=== PATIENT | male | born 1985 | race American Indian/Alaskan Native ===

== ENCOUNTER 2020-05-15 15:10 | Emergency (ER) | payer SELFPAY ==
[2020-05-15 16:10] VITALS: BP 205/148
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
--- NOTE | 2020-05-15 16:39 | XRay Report ---
LEFT SHOULDER 3 VIEWS INDICATION / CLINICAL INFORMATION: left shoulder pain COMPARISON: None available. FINDINGS: BONES and JOINT(S): No acute fracture or subluxation. No significant arthritis. SOFT TISSUES: No significant abnormality. ADDITIONAL FINDINGS: None. IMPRESSION: 1. No acute findings. Signer Name: Italo Becker MD Signed: 05/15/2020 4:34 PM Workstation Name: [id number]
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
== END 2020-05-15 17:42 | disposition home or self-care (01) ==
LOC: ED 15:10
DX: M25.512 Pain in left shoulder (principal); I10 Essential (primary) hypertension; Z79.899 Other long term (current) drug therapy; Z88.2 Allergy status to sulfonamides
CPT/HCPCS: 99283

== ENCOUNTER 2020-05-22 10:43 | Emergency (ER) | payer SELFPAY | END 2020-05-22 16:48 | disposition left against medical advice (07) | LOC: ED 10:43 | DX: M79.602 Pain in left arm (principal); Z53.21 Procedure and treatment not carried out due to patient leaving prior to being seen by health care provider ==

== ENCOUNTER 2020-07-23 11:56 | Emergency (ER) | payer BC ==
--- NOTE | 2020-07-23 14:56 | Emergency Department Report ---
Chief Complaint: Extremity Injury, Lower Stated Complaint: LT FOOT/RT TOE PAIN Time Seen by Provider: 07/23/20 14:48 - HPI History of Present Illness: Patient is a 34-year-old male presents emergency room complaints of chronic left foot pain. He states that he has a history of flatfoot and hammertoe. He states that he previously used to see a women's studies professor. He denies any fall or injury. Denies any numbness or weakness. He is ambulatory. He denies any foot swelling or redness. He has a past medical history of hypertension. Allergy to sulfa. Vitals with elevated blood pressure, otherwise stable On exam: Pes planus of the left foot, full range of motion of the left lower extremity, no edema, no erythema, no increased warmth, no skin changes, neurovascularly intact Patient is presenting for chronic foot pain He has a history of pes planus He has had no acute trauma He has no bony tenderness, full range of motion No signs of infection, gout, DVT Patient be referred to a women's studies professor Patient referred to primary care doctor Discuss strict return precautions in detail with patient Discussed with patient elevation in blood pressure, advised patient to follow-up with primary care doctor regarding blood pressure elevation, discussed low- sodium diet, discussed increasing water intake, discussed 30-60 minutes of daily exercise, advised to keep a blood pressure log and take to the primary care doctor The up-to-date medical literature does not recommend to emergently lower asymptomatic elevated blood pressure Patient is aware of his elevated blood pressure, 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 ED Disposition for MSE Clinical Impression: Left foot pain Disposition: Z-07 MED SCREENING EXAM-LEFT Is pt being admited?: No Does the pt Need Aspirin: No Condition: Stable Instructions: Foot Pain Additional Instructions: Please follow-up with a women's studies professor. Please follow-up with your primary care doctor. Return to emergency room for any new or worsening symptoms. Referrals: TYE MONDRAGON DPM [Staff Physician] - 2-3 Days CHIDI COOPER MD [Staff Physician] - 2-3 Days BILL MIRANDA MD [Staff Physician] - 2-3 Days JED AGEE MD [Staff Physician] - 2-3 Days [facility] [Provider Group] - 2-3 Days [facility], [LAB/CONTRACT] - 2-3 Days Time of Disposition: 14:55 Print Language: FAROESE
[2020-07-23 15:21] VITALS: BP 207/131
== END 2020-07-23 15:25 | disposition left against medical advice (07) ==
LOC: ED 11:56
DX: M79.672 Pain in left foot (principal); Z88.2 Allergy status to sulfonamides; Z53.21 Procedure and treatment not carried out due to patient leaving prior to being seen by health care provider

== ENCOUNTER 2021-02-01 16:30 | Emergency (ER) | payer BC | END 2021-02-01 20:00 | disposition left against medical advice (07) | LOC: ED 16:30 | DX: S09.93XA Unspecified injury of face, initial encounter (principal); Z53.21 Procedure and treatment not carried out due to patient leaving prior to being seen by health care provider; X58.XXXA Exposure to other specified factors, initial encounter ==

== ENCOUNTER 2021-04-07 09:57 | Outpatient (CLI) | payer OTHER ==
--- NOTE | 2021-04-07 10:49 | XRay Report ---
BILATERAL FOOT 2 VIEW(S) INDICATION / CLINICAL INFORMATION: BILATERAL FOOT PAIN COMPARISON: None available. FINDINGS: BONES / JOINT(S): No acute fracture or subluxation. No significant arthritis. SOFT TISSUES: No significant abnormality. ADDITIONAL FINDINGS: None. Signer Name: Huey Wilson DO Signed: 04/07/2021 10:44 AM Workstation Name: [id number]
== END 2021-04-07 09:58 | disposition home or self-care (01) ==
LOC: XRAY 09:57
PROVIDERS: ATTEND Internal Medicine
DX: Z02.71 Encounter for disability determination (principal)